=== PATIENT | male | born 1985 | race Hispanic/Latino ===

== ENCOUNTER 2017-04-08 23:43 | Emergency (ER) | payer OTHER ==
[2017-04-08 23:51] VITALS: BP 148/88; PULSE 93; RESP 16; TEMP 98; O2SAT 96
[2017-04-09] MEDS ORDERED: Lidocaine 1% Inj (20ml) ONE (00:05)
[2017-04-09] MEDS ORDERED: Lidocaine 2% Inj (20ml) IJ STA (00:14)
--- NOTE | 2017-04-09 00:39 | ED PDOC ---
HPI: Wound Care - HPI Additional Complaint(s): 31yo M with no PMHx c/o left lower lip laceration. Occurred 1 hour ago while playing with dog. Bleeding stopped after pressure applied. Denies fever, chills , nausea, vomiting, H/A, lightheadedness, chest pain, SOB. NKDA. Last TDaP vaccine unknown <Ann-Marie García - Last Filed: 04/09/17 00:50> <Maik Gant - Last Filed: 04/09/17 02:01> - HPI Time Seen by Provider: 04/08/17 23:53 Chief Complaint (Nursing): Bite Supervising Attending Note - Attestation: I have personally seen and examined this patient.: Yes I have fully participated in the care of the patient.: Yes I have reviewed all pertinent clinical information, including history, physical exam and plan: Yes <Maik Gant - Last Filed: 04/09/17 02:01> Past Medical History Reviewed: Historical Data, Nursing Documentation, Vital Signs Vital Signs: Last Vital Signs Temp 98 F 04/08/17 23:46 Pulse 93 H 04/08/17 23:46 Resp 16 04/08/17 23:46 BP 148/88 04/08/17 23:46 Pulse Ox 96 04/08/17 23:46 - Medical History PMH: No Chronic Diseases - Family History Family History: States: Unknown Family Hx - Social History Current smoker - smoking cessation education provided: No Alcohol: Social Drugs: Denies <Ann-Marie - Last Filed: 04/09/17 00:50> Vital Signs: Last Vital Signs Temp 98 F 04/08/17 23:46 Pulse 93 H 04/08/17 23:46 Resp 16 04/08/17 23:46 BP 148/88 04/08/17 23:46 Pulse Ox 96 04/09/17 00:51 <Maik Gant - Last Filed: 04/09/17 02:01> - Allergies Allergies/Adverse Reactions: Allergies Allergy/AdvReac Type Severity Reaction Status Date / Time No Known Allergies Allergy Verified 04/08/17 23:45 Review of Systems ROS Statement: Except As Marked, All Systems Reviewed And Found Negative <Ann-Marie García - Last Filed: 04/09/17 00:50> Physical Exam - Reviewed Nursing Documentation Reviewed: Yes Vital Signs Reviewed: Yes - Physical Exam Appears: Positive for: Well, No Acute Distress Head Exam: Positive for: ATRAUMATIC, NORMAL INSPECTION Skin: Positive for: Warm, Dry Eye Exam: Positive for: Normal appearance Neck: Positive for: Normal, Supple Extremity: Negative for: Tenderness, Pedal Edema Lymphatic: Positive for: Normal Exam Neurologic/Psych: Positive for: Alert, Oriented Comments: left lower lip laceration, T shaped, measuring 1cm and 2mm , not crossing shelli border <Ann-Marie - Last Filed: 04/09/17 00:50> - ECG O2 Sat by Pulse Oximetry: 96 <Ann-Marie - Last Filed: 04/09/17 00:50> Procedure: Wound Repair - Time Performed Time Performed: 00:15 - Time Out Time Out: Side verified, Site verified, Patient ID confirmed, Sterile procedures obs. - Consent Obtained Consent obtained: Verbal - Performed by Performed by: Attending Physician - Indications Indication(s):: Laceration, Bite - Location Location:: Left, Lip Shape:: Other (T shaped) Dimensions Length cm: 1 Dimensions width cm: 0.2 Depth:: Epidermis - Anesthetic Technique Anesthetic Technique: Local Local/Regional Anesthetic:: Lidocaine 1% - Debris Debris:: None - Irrigated Irrigated with ml of normal saline: 500 - Complexity Complexity:: Simple (one layer) - Wound repair method Sutures:: # (4), Size (7-0), Type (absorbable), Technique (semi sterile) - Muscle repiar layer closed with Muscle repair layer closed with:: Tetanus ordered - Complications Complications: none - Patient tolerated procedure Patient Tolerated Procedure:: Well <Ann-Marie - Last Filed: 04/09/17 00:50> Medical Decision Making Medical Decision Makin DDx left lower lip laceration 4 absorbable sutures placed TDap vaccine FU PCP <Ann-Marie - Last Filed: 04/09/17 00:50> Disposition - Disposition Disposition Time: 00:51 <Ann-Marie - Last Filed: 04/09/17 00:50> <Maik Gant - Last Filed: 04/09/17 02:01> - Clinical Impression Clinical Impression: Dog bite, Laceration - Disposition Referrals: [facility] [Outside] Condition: STABLE Instructions: Animal Bite (ED), Care For Your Absorbable Stitches (ED) Forms: [employer] (Czech) - PA / RN BSN / Resident Statement MD/DO has reviewed & agrees with the documentation as recorded. <Maik Gant - Last Filed: 04/09/17 02:01> Laceration - Laceration Repair No standard instances Wound Length (In cm): 1x2 Description Of Wound: Linear, Clean Anesthesia: Lidocaine 1% Wound Examination: Irrigated With Saline Wound Closure: Suture Suture Technique And Material Used: Vicryl (absorbable) Wound Complexity: Simple <Maik Gant - Last Filed: 04/09/17 02:01>
== END 2017-04-09 01:00 | disposition home or self-care (01) ==
LOC: H.ER 23:43
DX: S01.511A Laceration without foreign body of lip, initial encounter (principal); W54.0XXA Bitten by dog, initial encounter